=== PATIENT | male | born 1990 | race Caucasian/White ===

== ENCOUNTER 2021-02-01 00:24 | Emergency (ER) | payer OTHER, SELFPAY ==
[2021-02-01 00:27] VITALS: BP 132/82; PULSE 122; RESP 16; TEMP 36.9; O2SAT 99; BMI 20.9
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
[2021-02-01 01:00] VITALS: BP 135/79; PULSE 120; RESP 18; O2SAT 96
[2021-02-01 01:35] VITALS: BP 128/75; PULSE 118; RESP 16; TEMP 36.6; O2SAT 97
== END 2021-02-01 01:36 | disposition home or self-care (01) ==
PROVIDERS: Emergency Provider Emergency Medicine; PCP Nurse Practitioner
DX: S20.211A Contusion of right front wall of thorax, initial encounter (principal); S40.012A Contusion of left shoulder, initial encounter; S40.011A Contusion of right shoulder, initial encounter; V49.3XXA Car occupant (driver) (passenger) injured in unspecified nontraffic accident, initial encounter; Y92.488 Other paved roadways as the place of occurrence of the external cause; F17.210 Nicotine dependence, cigarettes, uncomplicated; Z88.0 Allergy status to penicillin
CPT/HCPCS: 71045; 96372; 99282

== ENCOUNTER 2021-04-04 19:58 | Emergency (ER) | payer OTHER, SELFPAY ==
[2021-04-04 20:20] VITALS: BP 129/78; PULSE 87; RESP 21; TEMP 37.1; O2SAT 99; BMI 20.9
[2021-04-04 20:30] LABS: Apearance,Urine Clear (Clear); Bilirubin,Urine Negative (Negative); Blood, Urine Negative (Negative); Color,Urine Yellow (Yellow); Glucose,Urine (UA) Negative (Negative); Ketones,Urine Negative (Negative); Protein,Urine Negative (Negative); UTC Leukocyte Esterase,Urine Negative (Negative); UTC Nitrate,Urine Negative (Negative); Urobilinogen,Urine 0.2 EU/dl (0.2)
--- NOTE | 2021-04-04 20:56 | HMH.EDUTC ---
[facility] Disposition Clinical Impression: Olecranon bursitis of right elbow Disposition: Home, Self-Care Condition on Discharge: Good Instructions: DI for Elbow Bursitis, How to Apply an Elastic Wrap on Elbow, Clindamycin Additional Instructions: *RICE, Rest the extremity, Ice 15-20 minutes 3-4 times daily, Compress- wear the demarco wrap as discussed as much as possible to help reduce swelling and pain, Elevate the extremity when at rest *Demarco wrap is for support and help control swelling, use it except in the shower. Be sure that is not to tight but not to loose either *Elevate when resting *Ibuprofen as prescribed every 6-8 hours as needed for pain an inflammation. If need something more can take Tylenol in between doses of Ibuprofen to help Immediately follow up with your family doctor for new or worsening of symptoms, or no noticeable improvement over the next 3-5 days Antibiotics as prescribed Follow up with your Family Doctor if no improvement or any worsening of symptoms Prescriptions: Ibuprofen [Ibuprofen 600mg Tablet] 600 mg PO Q6HP PRN #20 tab PRN Reason: Moderate Pain Transmission Status: Pending to [facility] clindamycin HCL [Clindamycin HCl] 300 mg PO Q8HP 10 Days #30 cap Transmission Status: Pending to [facility] Referrals: Provider,Referral, [Primary Care Provider] - Time of Disposition: 21:08 Medical Decision Making - Yuri Inquiry Pt receiving controlled substance: No Yuri was queried for this patient: No Vital Signs: 04/04/21 20:20 Temperature 98.7 F Temperature Source Oral Pulse Rate [Right Brachial] 87 Respiratory Rate 21 Blood Pressure [Right Arm] 129/78 Blood Pressure Mean [Right Arm] 95 Blood Pressure Source [Right Arm] Automatic Cuff Blood Pressure Position [Right Arm] Sitting 02 Sat by Pulse Oximetry 99 Oxygen Delivery Method Room Air - Lab Data Lab results reviewed: Yes: I reviewed the patient's lab results. Lab Results 04/04/21 20:22: Urine Color Yellow, Urine Appearance Clear, Urine pH 7.0, Ur Specific [place] 1.020, Urine Protein Negative, Urine Glucose (UA) Negative, Urine Ketones Negative, Urine Blood Negative, Urine Nitrate Negative, Urine Bilirubin Negative, Urine Urobilinogen 0.2, Ur Leukocyte Esterase Negative [facility] HPI - General Stated complaint: vomiting headache possible bite on R arm Time Seen by Provider: 04/04/21 20:57 Mode of Arrival: Ambulatory Source of Information: Patient Limitations: No Limitations Description of Symptoms (Recalled from Triage Doc. by RN): PATIENT C/O VOMITING, HEADACHE, SWELLING/PAIN TO RIGHT ELBOW AND TESTICLES HEENT Symptoms (Recalled from RN notes): Yes Resp Symptoms (Recalled from RN notes): No Skin Symptoms (Recalled from RN notes): No MS Symptoms (Recalled from RN notes): Yes Functional Status (Recalled from RN notes): WNL - History of Present Illness Provider Complaint: Patient states that he is an IV drug user and noticed a few days ago he was having some swelling in his right elbow area States that it gets warm to the touch and a little red States that he was worried he may have missed and it be causing an infection State that he had some swelling in his testicles about 2 weeks ago but that has went away and wanted to get urine checked - Related Data Previous Rx's Medication Instructions Recorded Ibuprofen [Ibuprofen 600mg 600 mg PO Q6HP PRN #20 tab 04/04/21 Tablet] clindamycin HCL [Clindamycin HCl] 300 mg PO Q8HP 10 Days #30 cap 04/04/21 Allergies Allergy/AdvReac Type Severity Reaction Status Date / Time Penicillins [PENICILLINS] Allergy Unknown Verified 09/29/17 09:02 - Worker's Comp Is this a Worker's Comp case?: No [facility] History - Hepatitis A Screen Drug use history?: No High risk sexual behaviors?: No History of sexually transmitted infection?: No Currently employed?: No Childcare worker?: No Do you have indoor plumbing?: Yes Do you have electric
[2021-04-04 21:10] VITALS: BP 129/78; PULSE 87; RESP 21; TEMP 37.1; O2SAT 99
== END 2021-04-04 21:24 | disposition home or self-care (01) ==
PROVIDERS: Emergency Provider Nurse Practitioner
DX: M70.21 Olecranon bursitis, right elbow (principal); Z88.0 Allergy status to penicillin
CPT/HCPCS: 81003; 99202; G0463

== ENCOUNTER 2021-07-18 02:47 | Emergency (ER) | payer OTHER, SELFPAY ==
[2021-07-18 02:48] VITALS: BP 134/68; PULSE 112; RESP 17; TEMP 37.1; O2SAT 98; BMI 23.0
--- NOTE | 2021-07-18 03:18 | PC.NURSE ---
Pt requesting to leave at this time, his partner does not want him to have an IV or blood-work completed and now pt is agreeing with her. Pt will be leaving without being seen.
[2021-07-18 03:20] VITALS: BP 134/68; PULSE 110; RESP 18; TEMP 37.1; O2SAT 99
== END 2021-07-18 03:21 | disposition left against medical advice (07) ==
LOC: ER 03:15
PROVIDERS: Emergency Provider Emergency Medicine
DX: L05.91 Pilonidal cyst without abscess (principal); Z53.21 Procedure and treatment not carried out due to patient leaving prior to being seen by health care provider; Z79.1 Long term (current) use of non-steroidal anti-inflammatories (NSAID); Z88.0 Allergy status to penicillin
CPT/HCPCS: 99211

== ENCOUNTER → 2023-02-12 14:41 | Outpatient (CLI) | payer BC, SELFPAY ==
--- NOTE | 2023-02-12 14:49 | US_ITS ---
FINAL REPORT CLINICAL HISTORY: left axillary lymphadenopathy COMPARISON: None FINDINGS: Sonographic images were obtained of the left axillary region. There are multiple left axillary lymph nodes with the largest measuring up to 2.3 cm. The dominant left axillary node has increased vascularity. IMPRESSION: Multiple left axillary nodes as above. Please correlate with any recent vaccine. In a patient with known malignancy, PET-CT could be considered. Reviewed, Interpreted and Dictated by Nicola Scott MD Transcribed by Kati Naqvi Authenticated and [facility]
== END ==
PROVIDERS: PCP Nurse Practitioner; Visit Provider Nurse Practitioner
DX: R59.0 Localized enlarged lymph nodes (principal)
CPT/HCPCS: 76882

== ENCOUNTER → 2023-02-15 23:41 | Outpatient (CLI) | payer BC, SELFPAY ==
[2023-02-15 18:43] LABS: Coronavirus 19, PCR Not Detected (NotDetected); Influenza A, PCR Not Detected (NotDetected); Influenza B, PCR Not Detected (NotDetected)
[2023-02-15 19:51] LABS: Basophils % 0.2 % (0.1-2.0); Eosinophils # 0.1 K/mm3 (0.0-0.4); Eosinophils % 1.3 % (0.1-12.0); Hemoglobin 13.2 g/dL (14.1-18.0); Lymphocytes # 1.4 K/mm3 (0.7-4.5); Lymphocytes % 15.4 % (10-50); Mean Corpuscular HGB Conc 34.8 g/dL (31.8-35.4); Mean Corpuscular Hemoglobin 32.5 pg (27.0-31.2); Mean Corpuscular Volume 93.5 fl (80-94); Mean Platelet Volume 9.1 fl (7.4-10.4); Monocytes # 0.5 K/mm3 (0.1-1.0); Neutrophils # 7.1 K/mm3 (1.8-7.8); Neutrophils % 77.3 % (37.0-80.0); Platelet Count 192 K/mm3 (142-424); Red Blood Count 4.07 M/mm3 (4.60-6.20); Red Cell Distribution Width 12.8 % (11.5-17.5); White Blood Count 9.1 K/mm3 (4.8-10.8)
[2023-02-15 21:22] LABS: Chloride 106 mmol/L (98-107); Potassium 4.6 mmoL/L (3.5-5.1); Sodium 141 mmol/L (136-145)
[2023-02-15 21:24] LABS: Blood Urea Nitrogen 14 mg/dl (9-20); Estimated Glomerular Filt Rate 97 ml/min (>60); GFR (African American) 118 ML/MIN (>60)
[2023-02-15 21:25] LABS: Alanine Aminotransferase 12 U/L (12-78); Albumin Level 4.9 g/dl (3.5-5.0); Albumin/Globulin Ratio 1.8 (1.1-1.8); Anion Gap 10.6 mEq/L (5-15); Aspartate Amino Transferase 23 U/L (17-59); Bilirubin,Total 1.1 mg/dl (0.2-1.3); Calcium 9.2 mg/dl (8.4-10.2); Carbon Dioxide 29 mmol/L (22.0-30.0); Globulin 2.7 g/dL (1.3-3.2); Glucose 94 mg/dl (74-100); Total Protein,Serum 7.6 g/dl (6.3-8.2)
[2023-02-15 22:01] LABS: Alkaline Phosphatase 53 U/L (38-126)
== END ==
PROVIDERS: PCP Nurse Practitioner; Visit Provider Nurse Practitioner
DX: J06.9 Acute upper respiratory infection, unspecified (principal); R59.0 Localized enlarged lymph nodes
CPT/HCPCS: 80053; 85025; 87636

== ENCOUNTER 2023-05-09 14:23 | Emergency (ER) | payer BC, SELFPAY ==
--- NOTE | 2023-05-09 14:23 | ECG_ITS ---
APPROVED REPORT Exam: Resting ECG HR:113 bpm ECG Measurements Heart Rate 113 AXES [place] 183 P 85 QRSd 99 QRS 103 QT 330 T 69 QTc 397 Conclusion SINUS TACHYCARDIA POSSIBLE RIGHT ATRIAL ENLARGEMENT [0.25mV P-WAVE] POSSIBLE LEFT ATRIAL ENLARGEMENT [-0.1mV P-WAVE IN V1/V2] RIGHT AXIS DEVIATION [QRS AXIS > 100] POSSIBLE RIGHT VENTRICULAR CONDUCTION DELAY [RSR (QR) IN V1/V2] ABNORMAL ECG UNCONFIRMED REPORT Electronically signed by : Fabian Ye MD 05/09/2023 21:44:56
[2023-05-09 14:25] VITALS: BP 160/118; PULSE 114; RESP 18; TEMP 36.9; O2SAT 100; BMI 22.4
[2023-05-09 14:30] VITALS: BP 127/86; PULSE 99; RESP 13; O2SAT 99
--- NOTE | 2023-05-09 14:36 | XR_ITS ---
FINAL REPORT CLINICAL HISTORY: pleuritic chest pain L lung COMPARISON: 02/01/2021 FINDINGS: Two views of the chest were obtained. The heart size and pulmonary vascularity are within normal limits. The mediastinum is normal. No acute pulmonary abnormality is identified. There is no pneumothorax. The bony thorax is intact. IMPRESSION: No active cardiopulmonary disease. Reviewed, Interpreted and Dictated by Chidi Carvalho III, MD Transcribed by Criss Mccormack Authenticated and [facility]
[2023-05-09 14:46] LABS: Basophils % 0.7 % (0.1-2.0); Eosinophils # 0.4 K/mm3 (0.0-0.4); Eosinophils % 6.2 % (0.1-12.0); Hemoglobin 13.7 g/dL (14.1-18.0); Lymphocytes # 2.1 K/mm3 (0.7-4.5); Lymphocytes % 35.2 % (10-50); Mean Corpuscular HGB Conc 33.5 g/dL (31.8-35.4); Mean Corpuscular Hemoglobin 32.4 pg (27.0-31.2); Mean Corpuscular Volume 96.7 fl (80-94); Mean Platelet Volume 7.5 fl (7.4-10.4); Monocytes # 0.4 K/mm3 (0.1-1.0); Monocytes % 6.6 % (1.7-9.3); Neutrophils % 51.3 % (37.0-80.0); Platelet Count 329 K/mm3 (142-424); Red Blood Count 4.24 M/mm3 (4.60-6.20); Red Cell Distribution Width 13.4 % (11.5-17.5); White Blood Count 5.8 K/mm3 (4.8-10.8)
[2023-05-09 14:51] LABS: Alanine Aminotransferase 25 U/L (12-78); Albumin Level 4.5 g/dl (3.5-5.0); Albumin/Globulin Ratio 1.6 (1.1-1.8); Alkaline Phosphatase 58 U/L (38-126); Aspartate Amino Transferase 32 U/L (17-59); Bilirubin,Total 0.4 mg/dl (0.2-1.3); Blood Urea Nitrogen 14 mg/dl (9-20); Calcium 9.2 mg/dl (8.4-10.2); Carbon Dioxide 30 mmol/L (22.0-30.0); Chloride 104 mmol/L (98-107); Creatinine Clearance Estimated 138 mL/min (50-200); Estimated Glomerular Filt Rate 111 ml/min (>60); GFR (African American) 134 ML/MIN (>60); Globulin 2.8 g/dL (1.3-3.2); Glucose 101 mg/dl (74-100); Sodium 140 mmol/L (136-145); Total Protein,Serum 7.3 g/dl (6.3-8.2)
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
[2023-05-09 15:05] LABS: Troponin I < 0.01 ng/ml (0.00-0.034)
[2023-05-09 15:36] VITALS: BP 119/80; PULSE 93; RESP 16; TEMP 36.9
== END 2023-05-09 15:48 | disposition home or self-care (01) ==
PROVIDERS: Emergency Provider Emergency Medicine; PCP Nurse Practitioner
DX: R07.81 Pleurodynia (principal); R05.9 Cough, unspecified; R00.0 Tachycardia, unspecified; F17.290 Nicotine dependence, other tobacco product, uncomplicated
CPT/HCPCS: 71046; 80053; 84484; 85025; 85378; 93005; 99285